=== PATIENT | female | born 1975 | race Caucasian/White ===

== ENCOUNTER → 2017-05-15 | Outpatient (CLI) | payer OTHER ==
[2017-05-17 03:32] LABS: Source CERVICAL
== END ==
LOC: LAB 17:00
PROVIDERS: Physician Assistant
DX: Z12.4 Encounter for screening for malignant neoplasm of cervix (principal)
CPT/HCPCS: 88175

== ENCOUNTER → 2022-03-08 | Outpatient (CLI) | payer OTHER | END | disposition home or self-care (01) | DX: L73.2 Hidradenitis suppurativa (principal); N95.8 Other specified menopausal and perimenopausal disorders; R63.5 Abnormal weight gain; R53.83 Other fatigue; R50.9 Fever, unspecified; R68.83 Chills (without fever); M13.80 Other specified arthritis, unspecified site; G47.00 Insomnia, unspecified ==

== ENCOUNTER 2022-06-16 07:48 | Day surgery (SDC) | payer OTHER ==
[~2022-06-16] VITALS: Ht 170.2 cm; Wt 92.9 kg
[2022-06-16] MEDS ORDERED: BUPR75 (08:31)
[2022-06-16] MEDS ORDERED: NAPR220 (08:31)
[2022-06-16] MEDS ORDERED: ERGO400 (08:32)
[2022-06-16] MEDS ORDERED: Cyclobenzaprine5 MG (08:32)
== END 2022-06-16 10:22 | disposition home or self-care (01) ==
LOC: ORSCSDS 07:48
PROVIDERS: Internal Medicine Gastroenterology
PROC: 0DBP8ZX Excision of Rectum, Via Natural or Artificial Opening Endoscopic, Diagnostic (ICD-10-PCS; principal; 2022-06-16 09:30)
DX: Z12.11 Encounter for screening for malignant neoplasm of colon (principal); K62.1 Rectal polyp; K57.30 Diverticulosis of large intestine without perforation or abscess without bleeding; K64.4 Residual hemorrhoidal skin tags; Z79.899 Other long term (current) drug therapy
CPT/HCPCS: 88305; J2704; J7120